=== PATIENT | female | born 1995 | race Caucasian/White ===

== ENCOUNTER 2016-07-04 15:56 | Emergency (ER) | payer MEDICAID ==
[2016-07-04 15:53] LABS: URINE SOURCE CLEAN CATCH
[2016-07-04 16:02] LABS: URINE APPEARANCE CLOUDY; URINE BILIRUBIN NEG (NEG); URINE BLOOD TRACE (NEG); URINE COLOR YELLOW; URINE GLUCOSE NEG (NEG); URINE KETONE TRACE (NEG); URINE LEUKOCYTE ESTERASE 3+ (NEG); URINE NITRATE NEG (NEG); URINE PROTEIN NEG (NEG); URINE SPECIFIC GRAVITY 1.018 (1.003-1.035)
[2016-07-04 16:05] LABS: CULTURE INDICATED? YES; URINE BACTERIA AUWI NEG (NEGATIVE); URINE SQUAMOUS EPITHELIAL CELL MOD /[HPF]; UWBCS1 AUWI 100-200 (0-5)
[2016-07-04 16:13] LABS: U HYALINE CASTS AUWI 0-2 /[LPF]
[2016-07-07 16:36] LABS: HSV 1 DNA Not Detected (Not Detected); HSV 2 DNA Not Detected (Not Detected)
[2016-07-08 01:56] LABS: CHLAMYDIA TRACH Detected (Not Detected); N GONOR Detected (Not Detected)
== END 2016-07-04 16:45 | disposition home or self-care (01) ==
LOC: CFTX 15:56
PROVIDERS: Physician Assistant
DX: A59.03 Trichomonal cystitis and urethritis (principal); M41.9 Scoliosis, unspecified
CPT/HCPCS: 81003; 84703; 87086; 87491; 87529; 87591; 87808; 87905; 96372; 99284; J0696